=== PATIENT | female | born 1950 | race African-American/Black ===

== ENCOUNTER 2017-03-29 19:08 | Inpatient (IN) | payer MEDICARE, MEDICAID ==
[~2017-03-29] VITALS: Ht 165.1 cm; Wt 80.7 kg
[~2017-03-29 19:08] MED LIST: ASPI-867 PO; CAPS30CR; CHLO25TA27 PO; CLON0.1T PO; CLOP75TA16 PO; FURO20TA4 PO; GLIP10TA10 PO; LISI-604 PO; LOSA50TA20; METF10002 PO; METH10TA7 PO; METH500T6; METO-396 PO; METO50TA95 PO; NIFE60TA7 PO; PRAV40TA PO; TRAM50TA; WARF5TAB76 PO; [UNRECOGNIZED DRUG - CODE] PO
[2017-03-29 19:59] LABS: MEAN CORPUSCULAR HEMOGLOBIN 25.1 pg (28.0-32.0); MEAN CORPUSCULAR VOLUME 78.2 fL (81.0-99.0); MEAN PLATELET VOLUME 8.8 fl (7.4-10.4); PLATELET 290 x1000/uL (130-400); RED BLOOD CELL COUNT 3.58 mill/uL (4.2-5.4); RED CELL DISTRIBUTION WIDTH 19.3 % (11.6-14.6)
[2017-03-29] MEDS ORDERED: METRONIDAZOLE 500 MG PREMIX 100 ML IV ONE (20:00)
[2017-03-29] MEDS ORDERED: LEVOFLOXACIN 750MG PREMIX 150 ML IV ONE (20:00)
[2017-03-29 20:04] LABS: INR 1.5; PARTIAL THROMBOPLASTIN TIME 36.4 sec (23.4-31.0); PROTHROMBIN TIME 15.7 sec (9.4-11.6)
[2017-03-29 20:12] LABS: CARBON DIOXIDE 22 mEq/L (21-32); CHLORIDE 99 mEq/L (98-107); TROPONIN I < 0.02 ng/mL (0.00-0.04)
[2017-03-29] MEDS ORDERED: MORPHINE SULFATE 2 MG/ML CPJ (NOT FOR IM USE) IV ONE (20:15)
[2017-03-29] MEDS ORDERED: GABA-531 PO (20:20)
[2017-03-29] MEDS ORDERED: DEXA4TAB PO (20:20)
[2017-03-29] MEDS ORDERED: FAMO20TA8 PO (20:20)
[2017-03-29 20:22] LABS: PLATELET ESTIMATE NORMAL
[2017-03-29] MEDS ORDERED: LOSA100T14 PO (20:24)
[2017-03-29] MEDS ORDERED: HYDR2TAB4 PO (20:24)
[2017-03-29] MEDS ORDERED: GLIM1TAB2 PO (20:24)
[2017-03-29] MEDS ORDERED: FURO40TA5 PO (20:24)
[2017-03-29] MEDS ORDERED: ONDANSETRON HCL 4MG/2ML VIAL IV ONE (20:30)
[2017-03-29] MEDS ORDERED: ASPIRIN 325MG EC TABLET PO ONE (20:45)
[2017-03-29] MEDS ORDERED: HYDROMORPHONE HCL/PF 2MG/ML CPJ IV ONE (20:45)
[2017-03-29] MEDS ORDERED: SODIUM CHLORIDE 0.9% 1000ML BAG (SEPSIS BOLUS) IV ONE (21:15)
[2017-03-29 23:02] LABS: CLARITY URINE CLEAR (CLEAR); COLOR URINE YELLOW (YELLOW); GLUCOSE URINE NEGATIVE (NEGATIVE); KETONES URINE NEGATIVE (NEGATIVE); LEUKOCYTE ESTERASE URINE NEGATIVE (NEGATIVE); NITRITE URINE NEGATIVE (NEGATIVE); OCCULT BLOOD URINE NEGATIVE (NEGATIVE); PROTEIN URINE NEGATIVE (NEGATIVE); SPECIFIC GRAVITY URINE 1.008 (1.005-1.030); UROBILINOGEN URINE 0.2 E.U./dL (0.2-1.0)
[2017-03-30 00:07] VITALS: BP 112/78
[2017-03-30] MEDS: PIPERACILLIN/TAZ 3.375G PREMIX 50 ML IV SCH ×3 (06:28→21:21)
[2017-03-30] MEDS: BLOOD SUGAR DIAGNOSTIC STRIP TEST SCH ×4 (06:28→21:24)
[2017-03-30 06:47] VITALS: BP 145/75
[2017-03-30 08:00] VITALS: BP 124/74
[2017-03-30] MEDS ORDERED: METOPROLOL TARTRATE 50MG TABLET PO NR (09:00)
[2017-03-30] MEDS ORDERED: VERAPAMIL HCL 2.5 MG/1 ML 2ML VIAL IV PRN (10:15)
[2017-03-30] MEDS ORDERED: DIGOXIN 500MCG/2ML AMP IV NR (10:26)
[2017-03-30] MEDS ORDERED: IOHEXOL-300 100 ML BOTTLE ONE (11:11)
[2017-03-30] MEDS ORDERED: SODIUM CHLORIDE 0.9% 10ML VIAL ONE (11:11)
[2017-03-30 12:00] VITALS: BP 112/63
[2017-03-30] MEDS ORDERED: DEXTROSE 50% WATER 50ML SYRINGE IV PRN (13:00)
[2017-03-30] MEDS ORDERED: FAMOTIDINE 20MG/2ML VIAL IV SCH (13:00)
[2017-03-30] MEDS ORDERED: METHYLPREDNISOLONE SOD SUCC 40 MG/ML VIAL IV SCH (13:00)
[2017-03-30] MEDS ORDERED: DIPHENHYDRAMINE 50MG/ML VIAL IV SCH (13:00)
[2017-03-30] MEDS: DILTIAZEM HCL 90MG TABLET PO SCH ×2 (13:07→21:21)
[2017-03-30 16:00] VITALS: BP 116/58
[2017-03-30] MEDS ORDERED: WARFARIN SODIUM 7.5MG TABLET PO SCH (18:00)
[2017-03-30] MEDS: INSULIN LISPRO 100 UNITS/ML SUBCUT SCH ×2 (18:12→21:23)
[2017-03-30 20:00] VITALS: BP 119/77
[2017-03-30] MEDS ORDERED: LEVE1000 PO (20:02)
[2017-03-30] MEDS ORDERED: METO-385 PO (20:02)
[2017-03-30] MEDS ORDERED: ONDA4TAB5 SL (20:02)
[2017-03-30] MEDS ORDERED: MORP30TA66 PO (20:02)
[2017-03-30] MEDS ORDERED: RIVA20TA PO (20:02)
[2017-03-30] MEDS ORDERED: SPIR25TA4 PO (20:02)
[2017-03-30] MEDS ORDERED: LACO100T2 PO (20:02)
[2017-03-30] MEDS ORDERED: OMEP40CA34 PO (20:02)
[2017-03-30 22:38] LABS: INR 1.4; PROTHROMBIN TIME 14.4 sec (9.4-11.6)
[2017-03-30] MEDS: MORPHINE SULFATE 4 MG/ML CPJ (NOT FOR IM USE) IV PRN (22:59)
[2017-03-31] VITALS: BP 116/70
[2017-03-31 04:00] VITALS: BP 112/72
[2017-03-31] MEDS: PIPERACILLIN/TAZ 3.375G PREMIX 50 ML IV SCH ×3 (04:50→20:59)
[2017-03-31] MEDS: DILTIAZEM HCL 90MG TABLET PO SCH ×3 (05:59→21:02)
[2017-03-31] MEDS: BLOOD SUGAR DIAGNOSTIC STRIP TEST SCH ×4 (06:38→21:04)
[2017-03-31 07:05] LABS: INR 1.4; PROTHROMBIN TIME 14.3 sec (9.4-11.6)
[2017-03-31 07:36] LABS: HEMATOCRIT 28.9 % (36.0-48.0); HEMOGLOBIN 9.3 g/dL (12.0-16.0); MEAN CORPUSCULAR HEMOGLOBIN 25.4 pg (28.0-32.0); MEAN CORPUSCULAR VOLUME 79.1 fL (81.0-99.0); PLATELET 277 x1000/uL (130-400); RED BLOOD CELL COUNT 3.66 mill/uL (4.2-5.4); RED CELL DISTRIBUTION WIDTH 19.6 % (11.6-14.6)
[2017-03-31 07:43] LABS: CARBON DIOXIDE 22 mEq/L (21-32); CHLORIDE 107 mEq/L (98-107); TROPONIN I < 0.02 ng/mL (0.00-0.04)
[2017-03-31 08:00] VITALS: BP 134/64
[2017-03-31] MEDS: INSULIN LISPRO 100 UNITS/ML SUBCUT SCH ×4 (08:19→21:03)
[2017-03-31] MEDS ORDERED: POTASSIUM CHLORIDE 20MEQ TABLET SR PO SCH (09:30)
[2017-03-31 12:00] VITALS: BP 129/71
[2017-03-31 16:00] VITALS: BP 113/72
[2017-03-31] MEDS ORDERED: DEXAMETHASONE 4MG TABLET PO SCH (16:30)
[2017-03-31] MEDS ORDERED: CLONIDINE 0.1MG TABLET PO SCH (16:30)
[2017-03-31] MEDS ORDERED: MEDICATION NOT ON FORMULARY EA (Levetiracetam (Keppra) 1 TAB) PO SCH (17:00)
[2017-03-31] MEDS ORDERED: NON FORMULARY PATIENT HOME MED EA XX SCH (17:00)
[2017-03-31] MEDS ORDERED: METHOCARBAMOL 500MG TABLET PO SCH (17:00)
[2017-03-31] MEDS: RIVAROXABAN 20 MG TABLET PO SCH (17:46)
[2017-03-31] MEDS: LEVETIRACETAM 500MG TABLET PO SCH (17:46)
[2017-03-31] MEDS: GABAPENTIN 300MG CAPSULE PO SCH (17:46)
[2017-03-31] MEDS ORDERED: CAPSAICIN 0.075% CREAM 60GM TOP PRN (18:00)
[2017-03-31] MEDS: MORPHINE SULFATE 4 MG/ML CPJ (NOT FOR IM USE) IV PRN (19:31)
[2017-03-31 20:00] VITALS: BP_SYST 110; BP_DIAS 67; BP_DIAS 69
[2017-03-31] MEDS ORDERED: VIMPAT 50 MG PO SCH (20:00)
[2017-03-31] MEDS: FAMOTIDINE 20MG TABLET PO SCH (21:02)
[2017-04-01] VITALS: BP 109/63
[2017-04-01 04:00] VITALS: BP 122/70
[2017-04-01] MEDS: PIPERACILLIN/TAZ 3.375G PREMIX 50 ML IV SCH ×3 (04:23→20:39)
[2017-04-01 05:54] LABS: HEMATOCRIT. 30.3 % (36.0-48.0); HEMOGLOBIN. 9.6 g/dL (12.0-16.0); MEAN CORPUSCULAR HEMOGLOBIN 25.5 pg (28.0-32.0); MEAN CORPUSCULAR VOLUME 80.1 fL (81.0-99.0); MEAN PLATELET VOLUME 8.5 fl (7.4-10.4); PLATELET 296 x1000/uL (130-400); RED BLOOD CELL COUNT 3.78 mill/uL (4.2-5.4); RED CELL DISTRIBUTION WIDTH 19.9 % (11.6-14.6)
[2017-04-01] MEDS: DILTIAZEM HCL 90MG TABLET PO SCH ×3 (06:10→21:34)
[2017-04-01] MEDS: BLOOD SUGAR DIAGNOSTIC STRIP TEST SCH ×4 (06:24→21:00)
[2017-04-01 06:26] LABS: CARBON DIOXIDE 25 mEq/L (21-32); CHLORIDE 112 mEq/L (98-107)
[2017-04-01] MEDS: INSULIN LISPRO 100 UNITS/ML SUBCUT SCH ×4 (07:14→21:00)
[2017-04-01 08:12] VITALS: BP 106/58
[2017-04-01] MEDS ORDERED: ASPIRIN 325MG EC TABLET PO SCH (09:00)
[2017-04-01] MEDS: GLIMEPIRIDE 1MG TABLET PO SCH (09:27)
[2017-04-01] MEDS: LEVETIRACETAM 500MG TABLET PO SCH ×2 (09:27→16:55)
[2017-04-01] MEDS: CHLORTHALIDONE 25MG TABLET PO SCH (09:27)
[2017-04-01] MEDS: FUROSEMIDE 20MG TABLET PO SCH (09:27)
[2017-04-01] MEDS: GABAPENTIN 300MG CAPSULE PO SCH ×3 (09:28→16:54)
[2017-04-01] MEDS ORDERED: DIGOXIN 500MCG/2ML AMP IV NR (12:00)
[2017-04-01] MEDS: ASPIRIN 81MG EC TABLET PO SCH (12:00)
[2017-04-01] MEDS ORDERED: POTASSIUM CHLORIDE 20MEQ TABLET SR PO NR (12:00)
[2017-04-01 12:03] VITALS: BP 124/72
[2017-04-01 13:06] LABS: PLATELET ESTIMATE NORMAL
[2017-04-01 16:21] VITALS: BP 98/62
[2017-04-01] MEDS: RIVAROXABAN 20 MG TABLET PO SCH (16:54)
[2017-04-01] MEDS: VIMPAT 50 MG PO SCH (21:32)
[2017-04-01] MEDS: FAMOTIDINE 20MG TABLET PO SCH (21:33)
[2017-04-02] VITALS: BP 149/83
[2017-04-02 04:00] VITALS: BP 120/87
[2017-04-02] MEDS: PIPERACILLIN/TAZ 3.375G PREMIX 50 ML IV SCH ×3 (05:15→22:11)
[2017-04-02] MEDS: MORPHINE SULFATE 4 MG/ML CPJ (NOT FOR IM USE) IV PRN ×2 (05:29→18:03)
[2017-04-02] MEDS: BLOOD SUGAR DIAGNOSTIC STRIP TEST SCH ×4 (06:25→21:00)
[2017-04-02] MEDS: DILTIAZEM HCL 90MG TABLET PO SCH ×3 (06:25→22:16)
[2017-04-02 07:26] LABS: CARBON DIOXIDE 28 mEq/L (21-32); CHLORIDE 108 mEq/L (98-107)
[2017-04-02 08:13] LABS: CANCER ANTIGEN 125 57.9 U/mL (0.0-38.1)
[2017-04-02 08:14] VITALS: BP 127/80
[2017-04-02] MEDS: CHLORTHALIDONE 25MG TABLET PO SCH (09:10)
[2017-04-02] MEDS: FUROSEMIDE 20MG TABLET PO SCH (09:10)
[2017-04-02] MEDS: ASPIRIN 81MG EC TABLET PO SCH (09:10)
[2017-04-02] MEDS: LEVETIRACETAM 500MG TABLET PO SCH ×2 (09:10→17:11)
[2017-04-02] MEDS: GLIMEPIRIDE 1MG TABLET PO SCH (09:10)
[2017-04-02] MEDS: GABAPENTIN 300MG CAPSULE PO SCH ×3 (09:11→17:11)
[2017-04-02] MEDS: VIMPAT 50 MG PO SCH ×2 (09:14→17:14)
[2017-04-02] MEDS: INSULIN LISPRO 100 UNITS/ML SUBCUT SCH ×4 (09:23→21:00)
[2017-04-02] MEDS ORDERED: POTASSIUM CHLORIDE 20MEQ TABLET SR PO NR (11:45)
[2017-04-02 12:23] VITALS: BP 129/88
[2017-04-02 16:04] VITALS: BP 102/56
[2017-04-02] MEDS: RIVAROXABAN 20 MG TABLET PO SCH (17:12)
[2017-04-02] MEDS ORDERED: DIGOXIN 125MCG TABLET PO SCH (18:00)
[2017-04-02 20:00] VITALS: BP 131/84
[2017-04-02] MEDS: FAMOTIDINE 20MG TABLET PO SCH (22:11)
[2017-04-03] VITALS: BP 124/77
[2017-04-03 04:00] VITALS: BP_SYST 107; BP_SYST 133; BP_DIAS 60; BP_DIAS 75
[2017-04-03] MEDS: PIPERACILLIN/TAZ 3.375G PREMIX 50 ML IV SCH ×2 (04:40→12:09)
[2017-04-03] MEDS: DILTIAZEM HCL 90MG TABLET PO SCH ×2 (06:00→15:18)
[2017-04-03] MEDS: BLOOD SUGAR DIAGNOSTIC STRIP TEST SCH ×2 (06:32→12:13)
[2017-04-03] MEDS: INSULIN LISPRO 100 UNITS/ML SUBCUT SCH ×2 (06:46→12:17)
[2017-04-03 07:54] LABS: CARBON DIOXIDE 27 mEq/L (21-32); CHLORIDE 108 mEq/L (98-107); HEMATOCRIT. 32.1 % (36.0-48.0); HEMOGLOBIN. 10.1 g/dL (12.0-16.0); MEAN CORPUSCULAR HEMOGLOBIN 25.2 pg (28.0-32.0); MEAN CORPUSCULAR VOLUME 80.6 fL (81.0-99.0); MEAN PLATELET VOLUME 8.6 fl (7.4-10.4); PLATELET 325 x1000/uL (130-400); RED BLOOD CELL COUNT 3.99 mill/uL (4.2-5.4); RED CELL DISTRIBUTION WIDTH 20.2 % (11.6-14.6)
[2017-04-03 08:25] VITALS: BP 100/72
[2017-04-03] MEDS: FUROSEMIDE 20MG TABLET PO SCH (08:31)
[2017-04-03] MEDS: GABAPENTIN 300MG CAPSULE PO SCH ×2 (08:31→12:09)
[2017-04-03] MEDS: GLIMEPIRIDE 1MG TABLET PO SCH (08:31)
[2017-04-03] MEDS: LEVETIRACETAM 500MG TABLET PO SCH (08:32)
[2017-04-03] MEDS: ASPIRIN 81MG EC TABLET PO SCH (08:32)
[2017-04-03] MEDS: CHLORTHALIDONE 25MG TABLET PO SCH (08:32)
[2017-04-03] MEDS: VIMPAT 50 MG PO SCH (08:34)
[2017-04-03] MEDS ORDERED: POTASSIUM CHLORIDE 20MEQ TABLET SR PO NR (11:50)
[2017-04-03] MEDS ORDERED: CLONIDINE 0.1MG TABLET PO PRN (12:15)
[2017-04-03 12:20] VITALS: BP 158/86
[2017-04-03] MEDS ORDERED: CEPH-569 PO (12:35)
[2017-04-03] MEDS ORDERED: [UNRECOGNIZED DRUG - CODE] PO (12:35)
[2017-04-03] MEDS ORDERED: DIGO-26 PO (12:35)
[2017-04-03 16:51] LABS: PLATELET ESTIMATE NORMAL
== END 2017-04-03 18:10 | disposition home or self-care (01) | DRG 871 ==
LOC: ER 19:08 → 6WST 21:09 → ENRESERV 22:00
PROVIDERS: ADMIT Internal Medicine; ATTEND Internal Medicine
DX: A41.9 Sepsis, unspecified organism (principal); J96.00 Acute respiratory failure, unspecified whether with hypoxia or hypercapnia; C79.51 Secondary malignant neoplasm of bone; I11.0 Hypertensive heart disease with heart failure; C77.9 Secondary and unspecified malignant neoplasm of lymph node, unspecified; I48.2 Chronic atrial fibrillation; I48.92 Unspecified atrial flutter; I50.9 Heart failure, unspecified; I48.1 Persistent atrial fibrillation; D68.59 Other primary thrombophilia; C34.90 Malignant neoplasm of unspecified part of unspecified bronchus or lung; I27.2 Other secondary pulmonary hypertension; D63.0 Anemia in neoplastic disease; C50.919 Malignant neoplasm of unspecified site of unspecified female breast; E11.9 Type 2 diabetes mellitus without complications; E66.9 Obesity, unspecified; E78.5 Hyperlipidemia, unspecified; R65.20 Severe sepsis without septic shock; E05.90 Thyrotoxicosis, unspecified without thyrotoxic crisis or storm; R62.7 Adult failure to thrive; Z79.01 Long term (current) use of anticoagulants; Z86.73 Personal history of transient ischemic attack (TIA), and cerebral infarction without residual deficits; Z79.82 Long term (current) use of aspirin; Z79.84 Long term (current) use of oral hypoglycemic drugs; Z79.899 Other long term (current) drug therapy; Z68.29 Body mass index [BMI] 29.0-29.9, adult
CPT/HCPCS: 36415; 70450; 71010; 71260; 80048; 80053; 81003; 82962; 83605; 83735; 83880; 84484; 85025; 85027; 85610; 85730; 86141; 86300; 86301; 86304; 87040; 87086; 93005; 93306; 96365; 96375; 97163; 97165; 97530; 99291; A4216; C1893; J1160; J1170; J1200; J1815; J1956; J2270; J2405; J2543; J2920; J3490; J7030; Q9967